=== PATIENT | male | born 1945 | race Caucasian/White ===

== ENCOUNTER → 2018-07-06 15:30 | Outpatient (CLI) | payer MEDICARE, SELFPAY | PROVIDERS: PCP Family Medicine; Visit Provider Nurse Practitioner Family | DX: Z45.018 Encounter for adjustment and management of other part of cardiac pacemaker (principal); I44.2 Atrioventricular block, complete; I10 Essential (primary) hypertension | CPT/HCPCS: 93288; 99213 ==

== ENCOUNTER 2018-08-19 01:27 | Outpatient (CLI) | payer MEDICARE, SELFPAY ==
[2018-08-19 11:31] LABS: Anion Gap 9.2 mmol/L (3-11); BUN 18 mg/dL (7-18); CO2 25.8 mmol/L (21.0-32.0); CREATININE 0.86 mg/dL (0.70-1.30); Calcium 8.6 mg/dL (8.5-10.1); Chloride 103 mmol/L (98-107); Cholesterol 139 mg/dL (50-200); Glucose 127 mg/dL (70-100); HDL Cholesterol 39 mg/dL (40-60); LDL CHOLESTEROL 83 mg/dL (<100); Potassium 4.3 mmol/L (3.5-5.1); Sodium 138 mmol/L (136-145); Triglyceride 109 mg/dL (30-150)
[2018-08-19 12:54] LABS: Hemoglobin A1C 6.7 % (4.5-6.2)
== END 2018-08-19 01:47 ==
PROVIDERS: PCP Family Medicine; Visit Provider Family Medicine
DX: E11.9 Type 2 diabetes mellitus without complications (principal)
CPT/HCPCS: 36415; 80048; 80061; 83721; 83036

== ENCOUNTER 2019-02-16 02:38 | Outpatient (CLI) | payer MEDICARE, SELFPAY ==
[2019-02-16 11:31] LABS: Hemoglobin A1C 6.7 % (4.5-6.2)
== END 2019-02-16 02:58 ==
PROVIDERS: PCP Family Medicine; Visit Provider Family Medicine
DX: E11.49 Type 2 diabetes mellitus with other diabetic neurological complication (principal)
CPT/HCPCS: 36415; 83036

== ENCOUNTER → 2019-03-01 10:38 | Outpatient (BNVA) | payer MEDICARE, SELFPAY | PROVIDERS: PCP Family Medicine; Visit Provider Nurse Practitioner Family | DX: I44.2 Atrioventricular block, complete (principal); Z45.018 Encounter for adjustment and management of other part of cardiac pacemaker; I10 Essential (primary) hypertension; E78.5 Hyperlipidemia, unspecified | CPT/HCPCS: 93288; 99213 ==

== ENCOUNTER 2019-08-18 01:46 | Outpatient (CLI) | payer MEDICARE, SELFPAY ==
[2019-08-18 13:39] LABS: Hemoglobin A1C 6.8 % (4.5-6.2)
== END 2019-08-18 02:06 ==
PROVIDERS: PCP Family Medicine; Visit Provider Family Medicine
DX: E11.9 Type 2 diabetes mellitus without complications (principal)
CPT/HCPCS: 36415; 83036

== ENCOUNTER 2019-08-25 07:00 | Outpatient (CLI) | payer MEDICARE, SELFPAY ==
[2019-08-25 14:38] LABS: BUN 19 mg/dL (7-18); CREATININE 0.91 mg/dL (0.70-1.30); Calcium 9.6 mg/dL (8.5-10.1); Chloride 102 mmol/L (98-107); Glucose 124 mg/dL (70-100); Potassium 4.6 mmol/L (3.5-5.1); Sodium 139 mmol/L (136-145)
== END 2019-08-25 07:20 ==
PROVIDERS: PCP Family Medicine; Visit Provider Family Medicine
DX: I10 Essential (primary) hypertension (principal)
CPT/HCPCS: 36415; 80048

== ENCOUNTER → 2019-12-14 12:59 | Outpatient (BNVA) | payer MEDICARE, SELFPAY | PROVIDERS: PCP Family Medicine; Referring Provider Family Medicine; Visit Provider Internal Medicine Cardiovascular Disease | DX: Z45.018 Encounter for adjustment and management of other part of cardiac pacemaker (principal); I44.2 Atrioventricular block, complete | CPT/HCPCS: 93280; 99212; 99213 ==

== ENCOUNTER → 2020-01-31 08:47 | Outpatient (BNVA) | payer MEDICARE, SELFPAY | PROVIDERS: PCP Family Medicine; Referring Provider Family Medicine; Visit Provider Internal Medicine Cardiovascular Disease | DX: R01.1 Cardiac murmur, unspecified (principal); I10 Essential (primary) hypertension; E78.5 Hyperlipidemia, unspecified; Z95.0 Presence of cardiac pacemaker; E11.42 Type 2 diabetes mellitus with diabetic polyneuropathy; Z79.84 Long term (current) use of oral hypoglycemic drugs | CPT/HCPCS: 99204; 99215 ==

== ENCOUNTER 2020-02-14 01:53 | Outpatient (CLI) | payer MEDICARE, OTHER, SELFPAY ==
--- NOTE | 2020-02-14 13:31 | DI.US_ITS ---
APPROVED REPORT EXAM: Comprehensive 2D, Doppler, and color-flow Echocardiogram Patient Location: [facility] Programmer: Marie Gutiérrez RDCS (AE) Indications: Murmur, HTN Conclusion Left Ventricle : The left ventricle is normal size. The left ventricular systolic function is normal. The left ventricular ejection fraction is within the normal range. There is normal left ventricular wall thickness. There is normal LV segmental wall motion. Diastolic function is indeterminate. LVEF i s 65-70%. Right Ventricle : The right ventricle is normal size. The right ventricular systolic function is norm al. Atria : The left atrium size is normal. The right atrium size is normal. Valves: There are no hemodynamically significant valvular lesions. Great Vessels : IVC is normal in size and collapses >50% with inspiration. The estimated RVSP is 35-4 0 mmHg. Please see the remainder of the study for additional details. There are no prior echocardiogram studies available for comparison. Wall motion Left Ventricle The left ventricle is normal size. The left ventricular systolic function is normal. The left ventric ular ejection fraction is within the normal range. There is normal left ventricular wall thickness. T here is normal LV segmental wall motion. Diastolic function is indeterminate. There is no ventricular septal defect visualized. LVEF is 65-70%. Right Ventricle The right ventricle is normal size. The right ventricular systolic function is normal. Atria The left atrium size is normal. The right atrium size is normal. Aortic Valve The Aortic valve is sclerotic. Aortic valve is probably trileaflet. There is no aortic valvular steno sis. No aortic regurgitation is present. Mitral Valve The mitral valve is normal in structure. No evidence of mitral valve stenosis. Trace mitral regurgita tion. Tricuspid Valve The tricuspid valve is normal in structure. There is no tricuspid valve stenosis. Trace tricuspid reg urgitation. Pulmonic Valve The pulmonary valve is normal in structure. There is no pulmonic valvular stenosis. There is no pulmo chet valvular regurgitation. Great Vessels The aortic root is normal in size. The ascending aorta is normal in size. Aortic arch is normal in ca liber. IVC is normal in size and collapses >50% with inspiration. The estimated RVSP is 35-40 mmHg. Pericardium There is no pericardial effusion. There is no pleural effusion. 2D Dimensions IVSD d PLAX 0.98 cm M: 0.6-1.2 LV Vol A2C d MOD 66.6 mL LVPW d PLAX 0.97 cm M: 0.6 - 1.2 LV Vol A4C d MOD 133.9 mL LVID d PLAX 5.10 cm M: 4.2 - 5.8 LA vol/ BSA A2C s A-L 38.0 mL/m2 LVDs 3.30 cm M: 2.5 - 4.0 LA vol/ BSA A4C s A-L 21.6 mL/m2 Ao Root d 2.82 cm M: 3.1 - 3.7 LA Vol/ BSA Biplane s A-L 30.2 mL/m2 RA Area A4C 14.19 cm2 LA Area A4C s MOD 16.51 cm2 RA Vol/ BSA A4C s A-L 18.8 mL/m2 LA Area A2C s MOD 23.04 cm2 Ao Asc Diam d 3.53 cm M: 2.6 - 3.4 LV EF A4C MOD 53.3 % LV EF Teichholz 63.4 % LV EF A2C MOD 51.6 % LVEF (Hawthorne's) 52.86 % M: 52 - 72 LV EF Biplane MOD 52.9 % LV Volume 71.19 mL M: 62 - 150 LV Volume Index 32.95 mL/m2 M: 34 - 74 LV Vol Biplane MOD 97.4 mL FS 34.55 % M-Mode TAPSE 2.60 cm (M/F) <1.7 LV Diastology MV E' medial 0.059 (>0.07 m/s) E/A Ratio 0.7 LV E/e MED 12.00 (<14) MV E Vmax 0.70 (0.4-1.3 m/s) MV E' lateral 0.072 (>0.1 m/s) MV A Vmax 0.95 (0.4-1.3 m/s) LV E/e LAT 9.70 (<14) MV E/A Ratio 0.72 MV E/E' medial 12.00 MV E/E' lateral 9.73 Aortic Valve LVOT Area 3.26 cm2 AoV Area Vmax 1.64 cm2 LVOT Vmax 0.88 m/s AoV Area/ BSA (Vmax) 0.75 cm2/m2 LVOT Mean Hardik. 0.62 m/s SHERRY Mean Hardik. 1.62 cm2 LVOT Peak Grad 3.1 mmHg SHERRY Mean Hardik. Index 0.75 cm2/m2 LVOT Mean Grad 1.7 mmHg LVOT VTI 0.184 m LVOT Diam s 2.00 cm (M/F) 1.5-2.5 AoV Vmax 1.76 (0.5-1.3 m/s) Velocity Ratio 0.50 AoV Mean Hardik. 1.24 m/s AoV Peak Grad 12.4 mmHg LVOT SV 59.92 mL AoV Mean Grad 7.0 (<5 mmHg) AoV VTI 0.315 (0.18-0.25 m) AoV Area VTI 1.90 (2.5-4.5 cm2) AoV Area/ BSA (VTI) 0.88 cm/m2 Mitral Valve MV DT 317 (160-240 msec) MV PHT 92 msec MV Area PHT 2.39 cm2 Pulmonary Valve PV Vmax 1.11 (0.5-1.5 m/s) PV Peak Grad 5.0 mmHg PV Mean Grad 2.6 mmHg PV VTI 0.220 m Tricuspid Valve TR Peak Grad 34.0 mmHg TR Vmax 2.92 m/s RA Pressure 3.00 mmHg RVSP (TR) 37.0 mmHg
== END 2020-02-14 02:13 ==
PROVIDERS: PCP Family Medicine; Visit Provider Internal Medicine Cardiovascular Disease
DX: R01.1 Cardiac murmur, unspecified (principal); I10 Essential (primary) hypertension; E78.5 Hyperlipidemia, unspecified
CPT/HCPCS: 93306

== ENCOUNTER 2020-02-16 02:24 | Outpatient (CLI) | payer MEDICARE, OTHER, SELFPAY ==
[2020-02-16 11:02] LABS: Hemoglobin A1C 6.8 % (3.8-5.6)
== END 2020-02-16 02:44 ==
PROVIDERS: PCP Family Medicine; Visit Provider Family Medicine
DX: E11.9 Type 2 diabetes mellitus without complications (principal)
CPT/HCPCS: 36415; 83036

== ENCOUNTER 2020-06-12 03:52 | Outpatient (CLI) | payer MEDICARE, SELFPAY ==
[2020-06-12 14:27] LABS: Hemoglobin A1C 6.4 % (3.8-5.6)
== END 2020-06-12 04:12 ==
PROVIDERS: PCP Family Medicine; Visit Provider Family Medicine
DX: E11.9 Type 2 diabetes mellitus without complications (principal)
CPT/HCPCS: 36415; 83036

== ENCOUNTER → 2020-06-13 08:49 | Outpatient (BNVA) | payer MEDICARE, SELFPAY | PROVIDERS: PCP Family Medicine; Referring Provider Family Medicine; Visit Provider Physician Assistant | DX: I44.2 Atrioventricular block, complete (principal); Z45.018 Encounter for adjustment and management of other part of cardiac pacemaker; E11.42 Type 2 diabetes mellitus with diabetic polyneuropathy; Z79.84 Long term (current) use of oral hypoglycemic drugs; I10 Essential (primary) hypertension | CPT/HCPCS: 93280; 99211 ==

== ENCOUNTER 2020-10-10 02:23 | Outpatient (CLI) | payer MEDICARE, SELFPAY ==
[2020-10-10 12:47] LABS: MCH 28.6 pg (27.0-33.0); MCHC 32.6 % (32.0-36.0); MCV 87.8 fL (80-95); MPV 12.1 fL (8.0-11.0); Platelet Count 217 10^3/uL (130-400); RDW 13.8 % (11.8-14.1); RDW-SD 44.2 fL; WBC 8.13 10^3/uL (4.4-10.8)
[2020-10-10 13:06] LABS: Microalb ug/mg Crea 33.7 ug/mg Cr
[2020-10-10 13:17] LABS: ALT 23 U/L (16-63); AST 18 U/L (15-37); Albumin 4.1 g/dL (3.4-5.0); Alkaline Phosphatase 83 U/L (46-116); Anion Gap 7.8 mmol/L (3-11); BUN 17 mg/dL (7-18); Bilirubin, Total 0.5 mg/dL (0.2-1.0); CO2 28.2 mmol/L (21.0-32.0); CREATININE 0.93 mg/dL (0.70-1.30); Calcium 9.5 mg/dL (8.5-10.1); Calculated LDL 90 mg/dL (<100); Chloride 101 mmol/L (98-107); Cholesterol 157 mg/dL (<200); Glucose 116 mg/dL (74-106); HDL Cholesterol 43 mg/dL (40-60); Potassium 4.3 mmol/L (3.5-5.1); Sodium 137 mmol/L (136-145); Total Protein 8.2 g/dL (6.4-8.2); Triglyceride 123 mg/dL (<150); Vitamin B12 404 pg/mL (193-986)
== END 2020-10-10 02:43 ==
PROVIDERS: PCP Family Medicine; Visit Provider Family Medicine
DX: I10 Essential (primary) hypertension (principal); E78.5 Hyperlipidemia, unspecified; E11.3293 Type 2 diabetes mellitus with mild nonproliferative diabetic retinopathy without macular edema, bilateral
CPT/HCPCS: 36415; 80053; 80061; 85027; 82043; 82570; 82607

== ENCOUNTER → 2021-01-16 08:51 | Outpatient (BNVA) | payer MEDICARE, SELFPAY | PROVIDERS: PCP Family Medicine; Visit Provider Physician Assistant | DX: I44.2 Atrioventricular block, complete (principal); Z45.018 Encounter for adjustment and management of other part of cardiac pacemaker | CPT/HCPCS: 93280; 99212 ==

== ENCOUNTER → 2021-02-01 08:54 | Outpatient (BNVA) | payer MEDICARE, SELFPAY | PROVIDERS: PCP Family Medicine; Referring Provider Family Medicine; Visit Provider Internal Medicine Cardiovascular Disease | DX: I44.2 Atrioventricular block, complete (principal); E78.5 Hyperlipidemia, unspecified; I10 Essential (primary) hypertension | CPT/HCPCS: 99213 ==

== ENCOUNTER 2021-05-28 03:02 | Outpatient (CLI) | payer MEDICARE, SELFPAY ==
[2021-05-28 12:37] LABS: Anion Gap 8.1 mmol/L (3-11); BUN 20 mg/dL (7-18); CO2 27.9 mmol/L (21.0-32.0); CREATININE 0.9 mg/dL (0.70-1.30); Calcium 9.3 mg/dL (8.5-10.1); Chloride 105 mmol/L (98-107); Glucose 116 mg/dL (74-106); Potassium 4.8 mmol/L (3.5-5.1); Sodium 141 mmol/L (136-145)
[2021-05-28 12:45] LABS: Calculated LDL 91 mg/dL (<100); Cholesterol 152 mg/dL (<200); HDL Cholesterol 39 mg/dL (40-60); Triglyceride 110 mg/dL (<150)
[2021-05-28 13:19] LABS: Hemoglobin A1C 6.7 % (<5.7)
== END 2021-05-28 03:03 | disposition home or self-care (01) ==
LOC: LOS 03:08
PROVIDERS: Family Medicine; PCP Nurse Practitioner Family; Visit Provider Nurse Practitioner Family
DX: I10 Essential (primary) hypertension (principal); E11.3293 Type 2 diabetes mellitus with mild nonproliferative diabetic retinopathy without macular edema, bilateral
CPT/HCPCS: 80048; 80061; 83036

== ENCOUNTER → 2021-07-17 08:48 | Outpatient (BNVA) | payer MEDICARE, SELFPAY | PROVIDERS: PCP Nurse Practitioner Family; Referring Provider Family Medicine; Visit Provider Physician Assistant | DX: I44.2 Atrioventricular block, complete (principal); Z45.018 Encounter for adjustment and management of other part of cardiac pacemaker | CPT/HCPCS: 93280; 99211 ==

== ENCOUNTER 2021-10-08 01:01 | Outpatient (CLI) | payer MEDICARE, SELFPAY ==
--- NOTE | 2021-10-08 13:57 | DI.RAD_ITS ---
Exam(s) XR HIP RT COMPLETE AP PELVIS EXAM: XR HIP RT COMPLETE AP PELVIS CLINICAL HISTORY: Continued worsening pain of right hip,m25.551. TECHNIQUE: 2D digital imaging was performed of the right hip. Three images were obtained. AP pelvis and AP and lateral right hip views were obtained. COMPARISON: No exams were available for comparison FINDINGS: BONES: No acute fracture is present. No bony destructive lesion is seen. JOINTS: No dislocation present. There is marked narrowing of the right hip joint. Moderate narrowing is seen in the left hip joint. SOFT TISSUE: Atherosclerosis. IMPRESSION: 1. Marked narrowing of the right hip joint consistent with osteoarthritis. 2. Atherosclerosis. DATA REPOSITORY: RADIATION DOSE DELIVERED:
== END 2021-10-08 01:21 ==
PROVIDERS: PCP Nurse Practitioner Family; Visit Provider Nurse Practitioner Family
DX: M25.551 Pain in right hip (principal); M16.11 Unilateral primary osteoarthritis, right hip
CPT/HCPCS: 73502

== ENCOUNTER → 2021-12-23 08:45 | Outpatient (BNVA) | payer MEDICARE, SELFPAY | PROVIDERS: PCP Nurse Practitioner Family; Referring Provider Nurse Practitioner Family; Visit Provider Student in an Organized Health Care Education/Training Program | DX: M16.11 Unilateral primary osteoarthritis, right hip (principal); E11.9 Type 2 diabetes mellitus without complications; I10 Essential (primary) hypertension; I44.2 Atrioventricular block, complete | CPT/HCPCS: 99214 ==

== ENCOUNTER → 2022-01-02 01:49 | Outpatient (CLI) | payer MEDICARE, SELFPAY ==
[2022-01-02] MEDS: Bupivacaine 0.5% Pres-Free 10 ML VIAL 80 ML IJ (13:10)
--- NOTE | 2022-01-02 13:11 | DI.RAD_ITS ---
Exam(s) RF JOINT INJECTION FLUORO GUID EXAM: RF JOINT INJECTION FLUORO GUID CLINICAL HISTORY: R HIP INJ UNDER FLUORO,degenerative joint disease,fluoro guided injection, TECHNIQUE: 2D and realtime digital imaging was performed. COMPARISON: No exams were available for comparison FINDINGS: C-arm fluoroscopy utilized by Dr. Gallardo during right hip injection. Hard copy shows intra-articul ar injection. IMPRESSION: RADIATION DOSE DELIVERED: Kar=2.27 mGy Total DLP
--- NOTE | 2022-01-02 13:11 | W.PROCNOTE ---
Date of service: 01/02/22 Time of Service: 13:11 Procedure Note Date of procedure: 01/02/22 Procedure: Right Hip Injection with Fluoroscopic Guidance Surgeon/Proceduralist/Physician: Roderick Gallardo Procedure Diagnosis: Right Hip Osteoarthritis Procedure Indications: Isrrael has had persistent pain of the RIGHT hip and groin. Noninvasive measures have been tried. To serve as both diagnostic and therapeutic, an injection under fluoroscopy was recommended. I had discussed the risks of the procedure and the patient elected to proceed. Procedure Description: Isrrael was greeted in the flouroscopy room. The correct side was identified and the consent was reviewed with the patient and signed. The patient was then placed in the supine position on the fluoroscopy table. The RIGHT hip was then prepped with Chloraprep. The anterolateral injection starting point was identiifed by bony landmarks and fluoroscopy. The skin and soft tissue in the tract of the injection was anesthetized with 1% Lidocaine. A spinal needle was then inserted deep into the hip joint at the level of the lateral femoral neck under fluoroscopic guidance. A small amount of Omnipaque solution was injected to confirm intraarticular placement. Once confirmed, the hip was injected with 6cc of 0.5% Bupivicaine and 80mg of Depo-Medrol. A bandaid was placed on the injection site. The patient tolerated the procedure well and noted improvement in pre-injection pain.
[2022-01-02] MEDS: methylPREDNISolone ACETATE 80 MG/ML VIAL IM (13:31)
[2022-01-02] MEDS: Omnipaque 300 MG/ML 10 ML BTL IJ (13:33)
== END ==
PROVIDERS: PCP Nurse Practitioner Family; Visit Provider Student in an Organized Health Care Education/Training Program
DX: M16.11 Unilateral primary osteoarthritis, right hip (principal); M25.511 Pain in right shoulder; R10.31 Right lower quadrant pain
CPT/HCPCS: 20610; 77002; J1040

== ENCOUNTER → 2022-01-08 08:50 | Outpatient (BNVA) | payer MEDICARE, SELFPAY | PROVIDERS: PCP Nurse Practitioner Family; Visit Provider Physician Assistant | DX: I44.2 Atrioventricular block, complete (principal); Z95.0 Presence of cardiac pacemaker | CPT/HCPCS: 93280; 99211 ==

== ENCOUNTER 2022-05-16 01:22 | Outpatient (CLI) | payer MEDICARE, SELFPAY | END 2022-05-16 01:23 | disposition home or self-care (01) | LOC: LOS 01:22 | PROVIDERS: PCP Nurse Practitioner Family; Visit Provider Nurse Practitioner Family | DX: I10 Essential (primary) hypertension (principal) | CPT/HCPCS: 36415; 82565 ==

== ENCOUNTER → 2022-07-16 08:37 | Outpatient (BNVA) | payer MEDICARE, SELFPAY | PROVIDERS: PCP Nurse Practitioner Family; Referring Provider Nurse Practitioner Family; Visit Provider Physician Assistant | DX: Z95.0 Presence of cardiac pacemaker (principal); I44.2 Atrioventricular block, complete | CPT/HCPCS: 93280 ==

== ENCOUNTER 2022-10-13 10:06 | Day surgery (SDC) | payer MEDICARE, SELFPAY ==
[2022-10-13 10:15] VITALS: BP 163/75; PULSE 77; RESP 18; TEMP 36.1; O2SAT 98
[2022-10-13] MEDS: Tropicam./Phenyleph. (1/2.5%) 5 ML BTL OS ×3 (10:28→10:40)
--- NOTE | 2022-10-13 10:48 | W.ANESPRE ---
General Info Date of Service Date Performed: 10/13/22 Height: 5 ft 10 in Weight: 98 kg Body Mass Index (BMI): 30.9 Surgical Procedure: Operation Date: 10/13/22 13:40 Proposed Procedure Side Surgeon p Cataract Extraction with IOL Implant w/Glaucoma Stent Left Dave Mendez MD Meds Allergies and Home Medications Allergies Allergy/AdvReac Type Severity Reaction Status Date / Time amlodipine AdvReac Severe Light Verified 10/13/22 10:27 headedness and fatigue dorzolamide AdvReac Intermediate SORE THROAT Verified 10/13/22 10:27 hydrochlorothiazide AdvReac Intermediate Leg cramps Verified 10/13/22 10:27 timolol AdvReac Intermediate DRY MOUTH; Verified 10/13/22 10:27 SOB Home Medication Medication Instructions Recorded Aspirin 81 mg PO DAILY 02/16/13 magnesium chloride 64 mg 2 tab PO HS 02/16/13 (magnesium chloride) tablet,delayed release (Mag 64) lancets 28 gauge #100 ea 08/25/19 latanoprost 0.005 % eye drops 1 drp ophthalmic (eye) QPM 12/14/19 gabapentin 300 mg capsule 300 mg PO TID #270 tab-caps 02/07/22 losartan 100 mg tablet (Cozaar) 100 mg PO DAILY #180 tabs 02/07/22 lovastatin 40 mg tablet 80 mg PO QHS #180 tab-caps 02/07/22 metformin 1,000 mg tablet 1,000 mg PO BID #180 tabs 02/07/22 blood sugar diagnostic (FreeStyle #100 strips 04/21/22 Lite Strips) brimonidine 0.2 % eye drops 1 drp ophthalmic (eye) BID 05/26/22 acetaminophen 500 mg tablet 1,000 mg PO BID 10/10/22 Current Visit Medications: Current Medications Generic Name Dose Route Start Last Admin Trade Name Freq PRN Reason Stop Dose Admin Acetaminophen 1,000 mg 10/13/22 06:00 Acetaminophen 500 Mg Tab PO Q4H PRN PRN Miscellaneous Medication 0 ml 10/13/22 06:00 Prednisolone 1%, Moxifloxacin 0.5%, Nepafenac 0.1% 5ml Btl OS DIRECTED RAHEL Miscellaneous Medication 0 ml 10/13/22 06:00 10/13/22 10:40 Tropicam./Phenyleph. 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 Lam MARI; [employer] ADAPTA DR01 ADDR01, SERIAL # [id number]; ATRIAL LEAD MODEL # [id number], SERIAL # [id number]; VENTRICULAR LEAD #[id number], SERIAL # [id number] Pilonidal cyst Exc Status post placement of cardiac pacemaker Tobacco Smoking/Tobacco Use Status: Former Tobacco Use Passive smoking exposure: Yes Second hand exposure: No Alcohol Alcohol Intake: former Year quit: 2020 Substance Use Substance use: Never Substance use type: does not use Vital Signs and Lab Results Vital Signs Most Recent Vital Signs in EMR: Most Recent Vital Signs Temp Pulse Resp BP Pulse Ox 36.1 C L 77 18 163/75 H 98 10/13/22 10:15 10/13/22 10:15 10/13/22 10:15 10/13/22 10:15 10/13/22 10:15 Lab Results Blood Type / Crossmatch: No Data to Display Complete Blood Count: No Data to Display Complete Metabolic Panel: Hemoglobin A1c 6.7 % (4.5-5.7) H 09/22/22 10:58 Liver Function Panel: No Data to Display Coagulation Panel: No Data to Display Cardiac Panel: No Data to Display Arterial Blood Gas: No Data to Display Venous Blood Gas: No Data to Display Pancreas Panel: No Data to Display Thyroid Panel: No Data to Display Infectious Disease: No Data to Display Blood Cultures: No Data to Display Toxicology Panel: No Data to Display Anesthesia Assessment and Plan Anesthesia History Personal History: No History of Anesthesia Complications Family History: No Family History of Anesthesia Complications Exercise Tolerance Exercise Tolerance: Metabolic Equivalents>4 Pertinent Negatives Pertinent Negatives: No Symptoms of GERD Cardiac & Pulmonary Exam Cardiac Exam: Normal S1/S2 Heart Sounds Pulmonary Exam: Clear Bilateral Breath Sounds Implantable Cardiac Device Does patient have a Pacemaker or an ICD?: Yes Device Data Communications Software Consultant:: Blockchain Adapta Pacemaker Reason for Placement:: 3rd degree heart block Date of Last Device Interrogation:: 07/16/22 Airway Exam Known Difficult Airway: No Mallampati Class: 3 Mouth Opening: Normal (> 3cm) Thyromental Distance: Greater than 3 cm Neck Range of Motion: Full ROM Neck Circumference: Normal Teeth Condition: Generalized Poor Dentition ASA Classification ASA Score: ASA 3 Emergency Case?: No NPO Status NPO Status: NPO Clears >2 hours, Solids >8 hours Anesthesia Plan Resuscitation Status: Full Code Anesthesia Technique: MAC Anesthesia Airway Planned: Natural Airway Monitors Used: Standard Monitors Preoperative Comments:: Discussed plan. Pt feels he will be fine without sedation
[2022-10-13 10:52] VITALS: BMI 30.9
--- NOTE | 2022-10-13 11:20 | W.ANESPOSTOP ---
Postoperative Evaluation Date, Time and Location Date Performed: 10/13/22 Time Performed: 12:45 Patient Location: Day Surgery Unit Vital Signs Most Recent Imported Vital Signs: Most Recent Vital Signs Temp Pulse Resp BP Pulse Ox 36.1 C L 77 18 163/75 H 98 10/13/22 10:15 10/13/22 10:15 10/13/22 10:15 10/13/22 10:15 10/13/22 10:15 Most Recent Manually Entered Vital Signs: Adult Blood Pressure: 138/64 Heart Rate: 71 Respirations: 18 Oxygen Saturation (%): 97 Temperature (C): 36.4 C Pain Score (0-10 Scale): 0 Assessment Mental Status: Awake (Alert & Oriented to Patient Baseline) Airway and Respiratory Function: Patent airway with normal (patient baseline) respiratory exam Cardiovascular Function: Hemodynamically Stable Hydration Status: Adequately Hydrated Nausea & Vomiting: No Nausea or Vomiting Pain: Pt. Denies Any Pain Peripheral Nerve Block: Patient did not receive a nerve block
[2022-10-13] MEDS: Tetracaine 0.5% 4 ML BTL OS (11:59)
[2022-10-13] MEDS: Lidocaine 2% Jelly 6 ML SYR (12:00)
[2022-10-13] MEDS: Povidone-Iodine Ophth 30 ML BTL (12:00)
[2022-10-13] MEDS: Lidocaine 1% Pres-Free 5 ML VIAL (12:05)
[2022-10-13] MEDS: Duovisc Viscoelastic System EACH 1 EACH (12:08)
[2022-10-13] MEDS: Balanced Salt Soln.-PLUS 500 ML BAG (12:08)
[2022-10-13 12:36] VITALS: BP 138/64; PULSE 71; RESP 18; TEMP 36.4; O2SAT 97
--- NOTE | 2022-10-13 12:39 | W.PM.DSUDISC ---
Date of service: 10/13/22 Time of Service: 12:39 Discharge Plan Disposition Patient Disposition: HOME Condition: Good Discharge Details Attending Provider: Dave Mendez Primary Care Provider: Khari Cody Home Meds and New Rx's Prescriptions: No Action latanoprost 0.005 % drops 1 drp OP QPM brimonidine 0.2 % drops 1 drp ophthalmic (eye) BID (DME) lancets 28 gauge misc 1 ea Miscellaneous DAILY Qty: 100 5RF Rx Instructions: One Daily FOR FREESTYLE LITE METER. NO INSULIN. DIAGNOSIS CODE E11.9 ASPIRIN 81 MG tablet 81 mg PO DAILY Mag 64 64 MG tablet,delayed release (DR/EC) 2 tab PO HS gabapentin 300 mg capsule 300 mg PO TID Qty: 270 4RF losartan [Cozaar] 100 mg tablet 100 mg PO DAILY Qty: 180 4RF lovastatin 40 mg tablet 80 mg PO QHS Qty: 180 4RF metformin 1,000 mg tablet 1,000 mg PO BID Qty: 180 4RF (DME) FreeStyle Lite Strips Strip 1 ea Sub-Q DAILY Qty: 100 4RF Rx Instructions: One Daily acetaminophen 500 mg Tablet 1,000 mg PO BID Discharge Instructions Stand Alone Forms: Post-op Topical Cataract, Jameel Stewardey (DSU) Discharge Orders Discharge Orders: Discharge Order (Routine); Ordered 10/13/22 Ordered By: Dave Mendez DS: Diagnosis Discharge Diagnosis (1) Posterior subcapsular age-related cataract of left eye: Status: Resolved (2) Nuclear sclerotic cataract of left eye: Status: Resolved (3) Primary open angle glaucoma (POAG) of left eye, mild stage: Status: Chronic
--- NOTE | 2022-10-13 12:41 | W.PM.OP ---
Date of service: 10/13/22 Time of Service: 12:41 Operative Note Operative Note DATE OF PROCEDURE: 10/13/22 PRE-OP DIAGNOSIS: Nuclear/cortical cataract, left eye Primary open-angle glaucoma, left eye, mild stage PROCEDURE: 1. Cataract extraction using phacoemulsification with intraocular lens implant, left eye 2. Insertion of multiple anterior segment aqueous drainage devices (Glaukos iStent inject x 2) into trabecular meshwork, left eye SURGEON: Dave Mendez ANESTHESIA TYPE: Local By Surgeon and MAC Refer to Anesthesia Record ESTIMATED BLOOD LOSS: 0 PATHOLOGY: none sent COMPLICATIONS: None Patient was transported to: same day Patient's condition: stable Implants: 1. Isma [employer] / [employer] Tecnis ZCB00 intraocular lens 2. Glaukos iStent inject trabecular micro-bypass stent x 2 Indications: 1. Progressive decreased vision due to cataract, left eye 2. Primary open angle glaucoma, left eye Procedure Description: CATARACT SURGERY OPERATIVE REPORT PREOPERATIVE DIAGNOSIS: Nuclear/cortical cataract, left eye Primary open-angle glaucoma, mild stage, left eye POSTOPERATIVE DIAGNOSIS: Same OPERATION: 1. Cataract extraction using phacoemulsification with posterior chamber intraocular lens implant, left eye. 2. Insertion of multiple anterior segment aqueous drainage devices (Glaukos iStent inject x 2) into trabecular meshwork, left eye IOL: IOL Immigration Judge/Model: [employer] / SULY Tecnis ZCB00 IOL Power: + 18.0 diopters IOL Serial Number: [id number] Optic Diameter: 6.0mm Haptic/Overall Diameter: 13.0mm PHACO INFO: Enoch Centurion Vision System with OZil and Active [employer]uidics Cumulative Dispersed Energy (CDE): 20.63 seconds TRABECULAR MICRO-BYPASS STENT INFO: Glaukos iStent inject x 2 Reference Number: [id number] Serial Number: [id number] SURGEON: Dave Mendez MD, CHET ANESTHESIA: Monitored Anesthesia Care (MAC), with local sub-tenon's anesthetic infiltration COMPLICATIONS: None SPECIMENS: None INDICATIONS FOR PROCEDURE: Patient is a 77-year-old gentleman with history of progressive decreased vision in his left eye secondary to the development of significant nuclear and cortical cataract. He also has a history of primary open-angle glaucoma, mild stage, currently managed on 2 topical medications in the left eye. The option of cataract surgery was offered to the patient and he felt he was symptomatic enough that he wished to proceed. The option of glaucoma stent procedure at the time of cataract surgery was also offered to the patient and he wished to proceed with that as well. PROCEDURE: The correct surgical eye was identified and marked as the left eye and the pupil was dilated in the preoperative area using mydriatics and cycloplegics. The dilated pupil size was 5.5 mm. He elected to proceed without oral sedation. The patient was brought to the operating room where cardiopulmonary monitoring was instituted and surgical time-out was performed, confirming the correct operative eye and IOL power. Topical anesthesia was administered and ophthalmic povidone-iodine 5% was instilled into the conjunctival fornices. Lidocaine gel was applied to the cornea and the anahy-ocular area was prepped with Betadine 10% solution and draped in the usual sterile fashion for intraocular surgery, including an aperture drape. A Tegaderm transparent film dressing was cut in half and used to cover the lashes and lid margins. Care was taken to sequester the lashes and lid margins under the Tegaderm dressing. A lid speculum was placed between the lids of the operative eye and the Enoch Lux[employer] Revalia operating microscope was maneuvered into position. Rohan scissors were then used to make a conjunctival buttonhole approximately 6mm posterior to the limbus in the inferonasal quadrant. Blunt dissection was carried out to expose bare sclera, and a blunt-tipped sub-tenon?s anesthesia cannula was introduced and passed posteriorly along the globe where non-preserved plain lidocaine was injected into posterior sub-Tenon?s space. A sideport knife was used to make a paracentesis port superior/superiortemporally. Intraocular phenylephrine/lidocaine was injected into the anterior chamber. The anterior chamber was then filled with viscoelastic. A 2.4mm keratome knife was used to create a half-thickness groove at the limbus and then to construct a three-plane near-clear corneal tunnel extending 2.0mm into clear cornea in the temporal position. . A flap was raised on the anterior capsule and capsulorhexis forceps were used to complete a continuous curvilinear capsulorhexis of 5.0 mm. Balanced salt solution was then used to perform cortical cleaving hydrodissection and nuclear hydrodelineation until the lens could be freely rotated within the capsular bag. The lens nucleus was then disassembled and removed within the capsular bag and iris plane using phacoemulsification. The lens nucleus was noted to be quite dense. Additional Viscoat was injected into the anterior chamber intermittently to protect the corneal endothelium. Residual cortical material was removed using the 45-degree angled silicone I/A tip with 0.3mm port. The posterior capsule was carefully polished to remove as much residual lens epithelial cells as safely possible. The capsular bag was then inflated and the anterior chamber deepened with viscoelastic. The lens implant described above was inserted into the capsular bag using the SULY [place] Injector. A Kuglen hook was used to dial the IOL into position. The anterior chamber was then slightly over-filled with viscoelastic. The microsope and the patient's head were tilted into the ideal position for viewing of the anterior chamber angle. Viscoelastic was placed on the cornea followed by a surgical gonionlens, and the anterior chamber angle landmarks were identified. The Bizdomukos iStent inject handpiece was introduced into the anterior chamber and the insertion sleeve was retracted once the injector was distal to the pupillary margin. The trocar was advanced through the central portion of the trabecular meshwork and into the back wall of Schlemm's canal in the superiornasal quadrant, with care taken to ensure the micro-insertion tube was perpendicular to the trabecular meshwork. The trabecular meshwork was lightly dimpled and the stent was injected without difficulty. The same procedure was then performed in the inferiornasal quradrant. Both stents were then examined and noted to be in good position within the trabecular meshwork. The microscope and the patients head were returned to the normal coaxial position. Viscoelatic was then removed from the anterior chamber using the I/A handpiece. The lens implant was noted to center nicely within the capsular bag. The incisions were stromally hydrated, and the anterior chamber was reformed using BSS. Then 0.5cc of moxifloxacin 1.0mg/ml were injected into the capsular bag and anterior chamber. The incisions were checked with a Weck spear and found to be secure. Several drops of ophthalmic povidone-iodine 5% were then applied to the eye followed by two drops of Imprimis combination prednisolone/moxifloxacin/nepafenac solution. The drapes were removed and a clear plastic protective eye shield was placed over the eye. The patient was then returned to [facility] Day Surgery in stable condition.
[2022-10-13 12:50] VITALS: BP 138/64; PULSE 71; RESP 18; TEMPC 36.4; O2SAT 97
== END 2022-10-13 13:05 | disposition home or self-care (01) ==
LOC: SUR 10:06
PROVIDERS: PCP Nurse Practitioner Family; Visit Provider Ophthalmology
PROC: (CPT 66991; principal; 2022-10-13 13:30)
DX: H25.042 Posterior subcapsular polar age-related cataract, left eye (principal); H40.1121 Primary open-angle glaucoma, left eye, mild stage
CPT/HCPCS: 66991; V2632; C1783

== ENCOUNTER 2022-10-20 09:24 | Day surgery (SDC) | payer MEDICARE, SELFPAY ==
--- NOTE | 2022-10-20 06:43 | ANES.PREOP_ITS ---
General Info Date of Service Date Performed: 10/20/22 Height: 5 ft 9 in Weight: 97 kg Body Mass Index (BMI): 31.6 Surgical Procedure: Operation Date: 10/20/22 12:25 Proposed Procedure Side Surgeon p Cataract Extraction with IOL Implant w/Glaucoma Stent Right Dave Mendez MD Meds Allergies and Home Medications Allergies Allergy/AdvReac Type Severity Reaction Status Date / Time amlodipine AdvReac Severe Light Verified 10/20/22 10:15 headedness and fatigue dorzolamide AdvReac Intermediate SORE THROAT Verified 10/20/22 10:15 hydrochlorothiazide AdvReac Intermediate Leg cramps Verified 10/20/22 10:15 timolol AdvReac Intermediate DRY MOUTH; Verified 10/20/22 10:15 SOB Home Medication Medication Instructions Recorded Aspirin 81 mg PO DAILY 02/16/13 magnesium chloride 64 mg 2 tab PO HS 02/16/13 (magnesium chloride) tablet,delayed release (Mag 64) lancets 28 gauge #100 ea 08/25/19 latanoprost 0.005 % eye drops 1 drp ophthalmic (eye) QPM 12/14/19 gabapentin 300 mg capsule 300 mg PO TID #270 tab-caps 02/07/22 losartan 100 mg tablet (Cozaar) 100 mg PO DAILY #180 tabs 02/07/22 lovastatin 40 mg tablet 80 mg PO QHS #180 tab-caps 02/07/22 metformin 1,000 mg tablet 1,000 mg PO BID #180 tabs 02/07/22 blood sugar diagnostic (FreeStyle #100 strips 04/21/22 Lite Strips) brimonidine 0.2 % eye drops 1 drp ophthalmic (eye) BID 05/26/22 acetaminophen 500 mg tablet 1,000 mg PO BID 10/10/22 Current Visit Medications: Current Medications Generic Name Dose Route Start Last Admin Trade Name Freq PRN Reason Stop Dose Admin Acetaminophen 1,000 mg 10/20/22 06:00 Acetaminophen 500 Mg Tab PO Q4H PRN PRN Miscellaneous Medication 0 ml 10/20/22 06:00 Prednisolone 1%, Moxifloxacin 0.5%, Nepafenac 0.1% 5ml Btl OD DIRECTED RAHEL Miscellaneous Medication 0 ml 10/20/22 06:00 Tropicam./Phenyleph. 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 Essential hypertension 11/16/13 I10 Glaucoma 08/19/13 H40.9 Hyperlipidemia E78.5 Prostatism N40.0 Hereditary and idiopathic peripheral neuropathy 08/19/13 G60.9 Gait disorder R26.9 Degenerative joint disease of right hip M16.11 Nuclear sclerotic cataract of left eye H25.12 Posterior subcapsular age-related cataract of left eye H25.042 Primary open angle glaucoma (POAG) of left eye, mild stage H40.1121 Nuclear sclerotic cataract of right eye H25.11 Surgical History Surgical History (Updated 10/17/22 @ 11:26 by Jacqueline Rogers RN) History of cataract surgery History of colonoscopy History of hernia repair Pacemaker (05/22/15) DR. Lam MARI; [employer] ADAPTA DR01 ADDR01, SERIAL # [id number]; ATRIAL LEAD MODEL # 5076, SERIAL # [id number]; VENTRICULAR LEAD #[id number], SERIAL # [id number] Pilonidal cyst Exc Status post placement of cardiac pacemaker Tobacco Smoking/Tobacco Use Status: Former Tobacco Use Passive smoking exposure: Yes Second hand exposure: No Alcohol Alcohol Intake: former Year quit: 2019 Substance Use Substance use: Never Substance use type: does not use Vital Signs and Lab Results Vital Signs Most Recent Vital Signs in EMR: Temp Pulse Resp BP Pulse Ox 36.4 C L 71 18 126/66 97 10/20/22 10:20 10/20/22 10:20 10/20/22 10:20 10/20/22 10:20 10/20/22 10:20 Lab Results Blood Type / Crossmatch: No Data to Display Complete Blood Count: No Data to Display Complete Metabolic Panel: Hemoglobin A1c 6.7 % (4.5-5.7) H 09/22/22 10:58 Liver Function Panel: No Data to Display Coagulation Panel: No Data to Display Cardiac Panel: No Data to Display Arterial Blood Gas: No Data to Display Venous Blood Gas: No Data to Display Pancreas Panel: No Data to Display Thyroid Panel: No Data to Display Infectious Disease: No Data to Display Blood Cultures: No Data to Display Toxicology Panel: No Data to Display Imaging and Studies Imaging and Studies Study information below may be from another EMR and interpreted by another provider. Please see original notes in EMR for more complete details. Echocardiogram Summary: 2020: LVEF 65-70%, noraml RvFxn. no sig valve lesions. Anesthesia Assessment and Plan Anesthesia History Personal History: No History of Anesthesia Complications Family History: No Family History of Anesthesia Complications Exercise Tolerance Exercise Tolerance: Metabolic Equivalents>4 Cardiac & Pulmonary Exam Cardiac Exam: Normal S1/S2 Heart Sounds Pulmonary Exam: Clear Bilateral Breath Sounds Implantable Cardiac Device Does patient have a Pacemaker or an ICD?: Yes Device Early Breastfeeding Care Specialist:: Medtronic Adapta Pacemaker Reason for Placement:: 3rd degree Date of Last Device Interrogation:: unkn Airway Exam Known Difficult Airway: No Mallampati Class: 3 Mouth Opening: Normal (> 3cm) Thyromental Distance: Greater than 3 cm Neck Range of Motion: Full ROM Neck Circumference: Normal Teeth Condition: Generalized Poor Dentition ASA Classification ASA Score: ASA 3 Emergency Case?: No NPO Status NPO Status: NPO Clears >2 hours, Solids >8 hours Anesthesia Plan Resuscitation Status: Full Code Anesthesia Technique: MAC Anesthesia Airway Planned: Natural Airway Monitors Used: Standard Monitors Preoperative Comments:: 77 yo male for repeat cataract. no mko previous. no health history change Sig PMHx: DM, HTN, 3 degree HB, pacer, peripheral neuropathy, former smoker.
[2022-10-20] MEDS: Tropicam./Phenyleph. (1/2.5%) 5 ML BTL OD ×2 (10:19→10:35)
[2022-10-20 10:20] VITALS: BP 126/66; PULSE 71; RESP 18; TEMP 36.4; O2SAT 97
[2022-10-20 10:44] VITALS: BMI 31.6
[2022-10-20] MEDS: Povidone-Iodine Ophth 30 ML BTL (11:24)
[2022-10-20] MEDS: Tetracaine 0.5% 4 ML BTL OD (11:24)
[2022-10-20] MEDS: Lidocaine 2% Jelly 6 ML SYR (11:24)
[2022-10-20] MEDS: Lidocaine 1% Pres-Free 5 ML VIAL (11:30)
[2022-10-20] MEDS: Balanced Salt Soln.-PLUS 500 ML BAG (11:32)
[2022-10-20] MEDS: Duovisc Viscoelastic System EACH 1 EACH (11:33)
[2022-10-20 11:58] VITALS: BP 129/66; PULSE 70; RESP 17; TEMP 36.3; O2SAT 98
--- NOTE | 2022-10-20 11:58 | W.PM.DSUDISC ---
Date of service: 10/20/22 Time of Service: 11:59 Discharge Plan Disposition Patient Disposition: HOME Condition: Good Discharge Details Attending Provider: Dave Mendez Primary Care Provider: Khari Cody Home Meds and New Rx's Prescriptions: No Action latanoprost 0.005 % drops 1 drp OP QPM brimonidine 0.2 % drops 1 drp ophthalmic (eye) BID (DME) lancets 28 gauge misc 1 ea Miscellaneous DAILY Qty: 100 5RF Rx Instructions: One Daily FOR FREESTYLE LITE METER. NO INSULIN. DIAGNOSIS CODE E11.9 ASPIRIN 81 MG tablet 81 mg PO DAILY Mag 64 64 MG tablet,delayed release (DR/EC) 2 tab PO HS gabapentin 300 mg capsule 300 mg PO TID Qty: 270 4RF losartan [Cozaar] 100 mg tablet 100 mg PO DAILY Qty: 180 4RF lovastatin 40 mg tablet 80 mg PO QHS Qty: 180 4RF metformin 1,000 mg tablet 1,000 mg PO BID Qty: 180 4RF (DME) FreeStyle Lite Strips Strip 1 ea Sub-Q DAILY Qty: 100 4RF Rx Instructions: One Daily acetaminophen 500 mg Tablet 1,000 mg PO BID Discharge Instructions Stand Alone Forms: Post-op Topical Cataract, Jameel Rodriguez (DSU) DS: Diagnosis Discharge Diagnosis (1) Nuclear sclerotic cataract of right eye: Status: Resolved (2) Primary open angle glaucoma (POAG) of right eye, mild stage: Status: Chronic
--- NOTE | 2022-10-20 12:00 | ROE_ITS ---
Date of service: 10/20/22 Time of Service: 12:00 Operative Note Operative Note DATE OF PROCEDURE: 10/20/22 PRE-OP DIAGNOSIS: Nuclear cataract, right eye primary open-angle glaucoma, right eye, mild stage POST-OP DIAGNOSIS: same PROCEDURE: 1. Cataract extraction using phacoemulsification with intraocular lens implant, right eye 2. Insertion of anterior segment aqueous drainage device (Glaukos iStent inject x 2) into trabecular meshwork, right eye SURGEON: Dave Mendez ANESTHESIA TYPE: Local By Surgeon and MAC Refer to Anesthesia Record PATHOLOGY: none sent COMPLICATIONS: None Patient was transported to: same day Patient's condition: stable Implants: 1. Isma [employer] / [employer] Tecnis ZCB00 intraocular lens 2. Glaukos iStent inject trabecular micro-bypass stent Indications: 1. Progressive decreased vision due to cataract, right eye 2. Primary open angle glaucoma, right eye Procedure Description: CATARACT SURGERY OPERATIVE REPORT PREOPERATIVE DIAGNOSIS: Nuclear cataract, right eye Primary open-angle glaucoma, right eye, mild stage POSTOPERATIVE DIAGNOSIS: Same OPERATION: 1. Cataract extraction using phacoemulsification with posterior chamber intraocular lens implant, right eye. 2. Insertion of multiple anterior segment aqueous drainage devices (Glaukos iStent inject x 1) into trabecular meshwork, right eye IOL: IOL Tool Crib Lead/Model: J[employer]J Vision / SULY Tecnis ZCB00 IOL Power: + 18.5 diopters IOL Serial Number: [id number] Optic Diameter: 6.0mm Haptic/Overall Diameter: 13.0mm PHACO INFO: Enoch Centurion Vision System with OZil and Active Fluidics Cumulative Dispersed Energy (CDE): 12.16 seconds TRABECULAR MICRO-BYPASS STENT INFO: Glaukos iStent inject x 2 Reference Number: [id number] Serial Number: [id number] US [id number] SURGEON: Dave Mendez MD, CHET ANESTHESIA: Monitored Anesthesia Care (MAC), with local sub-tenon's anesthetic infiltration COMPLICATIONS: None SPECIMENS: None INDICATIONS FOR PROCEDURE: The patient is a 77-year-old gentleman with history of diminished visual acuity in both eyes secondary to the development of bilateral cataracts. He also has a history of primary open-angle glaucoma, intolerant to multiple medications. Glaucoma is currently managed on latanoprost and brimonidine in both eyes. The option of cataract surgery was offered to the patient and he wished to proceed. In addition, the option of glaucoma stent procedure at the time of cataract surgery was also also offered and he wished to proceed with this as well to reduce his eyedrop medication burden. He has undergone cataract surgery in the left eye and is doing well postoperatively. He now presents for cataract surgery with glaucoma stent in the right eye. PROCEDURE: The correct surgical eye was identified and marked as the right eye and the pupil was dilated in the preoperative area using mydriatics and cycloplegics. The dilated pupil size was 6.0 mm. The patient elected to proceed without oral sedation. The patient was brought to the operating room where cardiopulmonary monitoring was instituted and surgical time-out was performed, confirming the correct operative eye and IOL power. Topical anesthesia was administered and ophthalmic povidone-iodine 5% was instilled into the conjunctival fornices. Lidocaine gel was applied to the cornea and the anahy-ocular area was prepped with Betadine 10% solution and draped in the usual sterile fashion for intraocular surgery, including an aperture drape. A Tegaderm transparent film dressing was cut in half and used to cover the lashes and lid margins. Care was taken to sequester the lashes and lid margins under the Tegaderm dressing. A lid speculum was placed between the lids of the operative eye and the Enoch LuxOR Revalia operating microscope was maneuvered into position. Rohan scissors were then used to make a conjunctival buttonhole approximately 6mm posterior to the limbus in the inferonasal quadrant. Blunt dissection was carried out to expose bare sclera, and a blunt-tipped sub-tenon?s anesthesia cannula was introduced and passed posteriorly along the globe where non- preserved plain lidocaine was injected into posterior sub-Tenon?s space. A sideport knife was used to make a paracentesis port inferiortemporally. Intraocular phenylephrine/lidocaine was injected into the anterior chamber. The anterior chamber was then filled with viscoelastic. A 2.4mm keratome knife was used to construct a 2-plane near-clear corneal tunnel extending 2.0mm into clear cornea superiortemporally. . A flap was raised on the anterior capsule and capsulorhexis forceps were used to complete a continuous curvilinear capsulorhexis of 5.0 mm. Balanced salt solution was then used to perform cortical cleaving hydrodissection and nuclear hydrodelineation until the lens could be freely rotated within the capsular bag. The lens nucleus was then disassembled and removed within the capsular bag and iris plane using phacoemulsification. The anterior chamber was noted to be quite deep. Residual cortical material was removed using the 45-degree angled silicone I/A tip with 0.3mm port. The posterior capsule was carefully polished to remove as much residual lens epithelial cells as safely possible. The capsular bag was then inflated and the anterior chamber deepened with viscoelastic. The lens implant described above was inserted into the capsular bag using the SULY [place] Injector. A Kuglen hook was used to dial the IOL into position. The anterior chamber was then slightly over-filled with viscoelastic. The microsope and the patient's head were tilted into the ideal position for viewing of the anterior chamber angle. Viscoelastic was placed on the cornea followed by a surgical gonionlens, and the anterior chamber angle landmarks were identified. The brotipsukos iStent inject handpiece was introduced into the anterior chamber and the insertion sleeve was retracted once the injector was distal to the pupillary margin. The trocar was advanced through the central portion of the trabecular meshwork and into the back wall of Schlemm's canal in the inferonasal quadrant, with care taken to ensure the micro-insertion tube was perpendicular to the trabecular meshwork. The trabecular meshwork was lightly dimpled and the actuator button was depressed, but the stent failed to deploy. A second attempt was made and the stent deployed nicely within the trabecular meshwork. The same procedure was then performed in the superiornasal quadrant, but the stent failed to deploy after 2 clicks.. The microscope and the patients head were returned to the normal coaxial position. Viscoelatic was then removed from the anterior chamber using the I/A handpiece. The lens implant was noted to center nicely within the capsular bag. The incisions were stromally hydrated, and the anterior chamber was reformed using BSS. Then 0.5cc of moxifloxacin 1.0mg/ml were injected into the capsular bag and anterior chamber. The incisions were checked with a Weck spear and found to be secure. Several drops of ophthalmic povidone-iodine 5% were then applied to the eye followed by two drops of Imprimis combination prednisolone/moxifloxacin/nepafenac solution. The drapes were removed and a clear plastic protective eye shield was placed over the eye. The patient was then returned to Same Day Surgery in stable condition.
--- NOTE | 2022-10-20 12:11 | W.ANESPOSTOP ---
Postoperative Evaluation Date, Time and Location Date Performed: 10/20/22 Time Performed: 12:11 Patient Location: Day Surgery Unit Vital Signs Most Recent Imported Vital Signs: Most Recent Vital Signs Temp Pulse Resp BP Pulse Ox 36.3 C L 70 17 129/66 98 10/20/22 11:58 10/20/22 11:58 10/20/22 11:58 10/20/22 11:58 10/20/22 11:58 Pain Score Most Recent Pain Score: Most Recent Pain Score Pain Level 0 10/20/22 11:58 Assessment Mental Status: Awake (Alert & Oriented to Patient Baseline) Airway and Respiratory Function: Patent airway with normal (patient baseline) respiratory exam Cardiovascular Function: Hemodynamically Stable Hydration Status: Adequately Hydrated Nausea & Vomiting: No Nausea or Vomiting Pain: Pt. Denies Any Pain Peripheral Nerve Block: Patient did not receive a nerve block
== END 2022-10-20 12:18 | disposition home or self-care (01) ==
PROVIDERS: PCP Nurse Practitioner Family; Visit Provider Ophthalmology
PROC: (CPT 66991; principal; 2022-10-20 12:15)
DX: H25.11 Age-related nuclear cataract, right eye (principal); H40.1111 Primary open-angle glaucoma, right eye, mild stage; E11.42 Type 2 diabetes mellitus with diabetic polyneuropathy
CPT/HCPCS: 66991; V2632; C1783

== ENCOUNTER 2023-01-14 08:32 | Outpatient (CLI) | payer MEDICARE, SELFPAY ==
--- NOTE | 2023-01-14 08:30 | RT.EKG_ITS ---
APPROVED REPORT Exam: Resting ECG Reason for Exam: AV block Patient Location: O HR:69 bpm ECG Measurements Heart Rate 69 AXIS ID 226 P 1 QRSd 163 QRS -68 QT 443 T 88 QTc 475 Conclusion Atrial-sensed ventricular-paced rhythm...ventricular pacing tracks p-waves No further analysis attempted due to paced rhythm Baseline wander in lead(s) III,aVF
== END 2023-01-14 08:33 | disposition home or self-care (01) ==
LOC: DI.CARD 08:33
PROVIDERS: PCP Nurse Practitioner Family; Visit Provider Physician Assistant
DX: I44.2 Atrioventricular block, complete (principal)
CPT/HCPCS: 93010

== ENCOUNTER → 2023-01-14 08:45 | Outpatient (BNVA) | payer MEDICARE, SELFPAY | PROVIDERS: PCP Nurse Practitioner Family; Visit Provider Physician Assistant | DX: Z95.0 Presence of cardiac pacemaker (principal); I44.2 Atrioventricular block, complete | CPT/HCPCS: 93005; 93280; 99211 ==

== ENCOUNTER 2023-05-12 02:05 | Outpatient (CLI) | payer MEDICARE, SELFPAY ==
[2023-05-12 10:55] LABS: CREATININE 0.9 mg/dL (0.70-1.30); Calculated LDL 62 mg/dL (<100); Cholesterol 128 mg/dL (<200); Estimated GFR 86.88 (mL/min/1.73m2); HDL Cholesterol 44 mg/dL (40-60); Hemoglobin A1C 6.7 % (<5.7); Potassium 4.5 mmol/L (3.5-5.1); Triglyceride 114 mg/dL (<150)
== END 2023-05-12 02:06 | disposition home or self-care (01) ==
LOC: LOS 02:05
PROVIDERS: PCP Nurse Practitioner Family; Visit Provider Nurse Practitioner Family
DX: I10 Essential (primary) hypertension (principal); E11.42 Type 2 diabetes mellitus with diabetic polyneuropathy; E78.2 Mixed hyperlipidemia
CPT/HCPCS: 36415; 80061; 82565; 83036; 84132

== ENCOUNTER 2023-06-10 01:51 | Outpatient (CLI) | payer MEDICARE, SELFPAY ==
--- NOTE | 2023-06-10 07:47 | DI.US_ITS ---
Exam(s) US SOFT TISSUE EXTREMITY EXAM: US SOFT TISSUE EXTREMITY CLINICAL HISTORY: Cyst to right index finger,foreign body,m79.5. TECHNIQUE: Ultrasound was performed using standard protocol. COMPARISON: None. FINDINGS: Images are submitted for interpretation. Submitted images reveal 7 x 4 x 9 mm cystic structure off the dorsal aspect of the 2nd-index finger j ust distal to the proximal interphalangeal joint.. On these images there does not appear to be tendo n running through this cystic structure. IMPRESSION: Dorsal index finger cystic finding as above. First consideration is for para-articular ganglion cyst . DATA REPOSITORY:
== END 2023-06-10 02:11 ==
LOC: DI 01:52
PROVIDERS: PCP Nurse Practitioner Family; Visit Provider Nurse Practitioner Family
DX: M79.5 Residual foreign body in soft tissue (principal)
CPT/HCPCS: 76881

== ENCOUNTER → 2023-07-15 08:46 | Outpatient (BNVA) | payer MEDICARE, SELFPAY | PROVIDERS: PCP Nurse Practitioner Family; Visit Provider Physician Assistant | DX: Z45.010 Encounter for checking and testing of cardiac pacemaker pulse generator [battery] (principal); I44.2 Atrioventricular block, complete | CPT/HCPCS: 93280; 99212 ==

== ENCOUNTER → 2024-01-20 09:09 | Outpatient (BNVA) | payer MEDICARE, SELFPAY | PROVIDERS: PCP Nurse Practitioner Family; Referring Provider Nurse Practitioner Family; Visit Provider Physician Assistant | DX: Z95.0 Presence of cardiac pacemaker (principal); I44.2 Atrioventricular block, complete | CPT/HCPCS: 93280 ==

== ENCOUNTER → 2024-02-11 02:30 | Outpatient (CLI) | payer MEDICARE, SELFPAY ==
--- NOTE | 2024-02-11 15:08 | DI.US_ITS ---
APPROVED REPORT EXAM: Comprehensive 2D, Doppler, and color-flow Echocardiogram Patient Location: Out-Patient Gear Design Engineer: Marie Gutiérrez RDCS (AE) Indications: Third degree heart block, pacemaker Other Information Study Quality: Fair. Technically limited study due to body habitus. Conclusion Technically difficult study Normal left ventricular wall thickness and chamber size. Ejection fraction is 35%. There is global hypokinesis Right ventricle appears normal in size and function Atria are normal in size Device lead noted in the right heart Aortic valve is sclerotic without stenosis or regurgitation Mild mitral annular calcification. Mild mitral regurgitation Mild to moderate tricuspid regurgitation. Estimated right ventricular systolic pressure is 40 mmHg Wall motion Left Ventricle The left ventricle is normal size. Left ventricular systolic function is moderately decreased. There is normal left ventricular wall thickness. Regional wall motion abnormalities cannot be excluded. The re is no ventricular septal defect visualized. LVEF is 35%. Right Ventricle Right ventricle is grossly normal in size. Right ventricular systolic function is grossly normal. Pac emaker lead is present in the right ventricle. Atria The left atrium size is normal. The right atrium size is normal. Aortic Valve The Aortic valve is sclerotic. Number of aortic valve leaflets could not be assessed. There is no aor tic valvular stenosis. No aortic regurgitation is present. Mitral Valve Mild mitral annular calcification. No evidence of mitral valve stenosis. Mild mitral regurgitation. Tricuspid Valve The tricuspid valve is normal in structure. There is no tricuspid valve stenosis. Mild to moderate tr icuspid regurgitation. The RVSP is 39.6mmHg. Pulmonic Valve The pulmonary valve is normal in structure. There is no pulmonic valvular stenosis. Trace pulmonic re gurgitation. Great Vessels The aortic root is normal in size. The ascending aorta is mildly dilated. Aortic arch is normal in ca liber. IVC is normal in size and collapses >50% with inspiration. Pericardium There is no pericardial effusion. 2D Dimensions IVSD d PLAX 0.99 cm M: 0.6-1.2 Ao Root d 3.30 cm M: 3.1 - 3.7 LVPW d PLAX 0.98 cm M: 0.6 - 1.2 Ao Asc Diam d 3.52 cm M: 2.6 - 3.4 LVID d PLAX 4.84 cm M: 4.2 - 5.8 LVDs 4.03 cm M: 2.5 - 4.0 LV EF Teichholz 35.1 % FS 16.81 % LV EDV (Teich) 109.5 mL LV ESV (Teich) 71.1 mL M-Mode TAPSE 2.54 cm (M/F) >1.7 LA Volume LA Length A4C 4.0 cm LA Length A2C 4.9 cm LA Area A4C s 12.04 cm2 LA Area A2C s 17.45 cm2 LA Vol A4C A-L 30.87 mL LA Vol A2C A-L 53.16 mL LA Vol Biplane A-L 44.7 mL LA Vol/BSA A4C A-L LA Vol/BSA A2C A-L LA Vol/BSA BP A-L 21.6 mL/m2 LA Vol A4C MOD 29.9 mL LA Vol A2C MOD 49.6 mL LA Vol BP MOD 42.3 mL LV Diastology MV E' medial 0.051 (>0.07 m/s) MV E Vmax 0.85 (0.4-1.3 m/s) MV E/E' MED 16.71 (<14) MV A Vmax 0.95 (0.4-1.3 m/s) MV E' lateral 0.077 (>0.1 m/s) E/A Ratio 0.9 MV E/E' LAT 11.07 (<14) MV E' Average 0.064 m/s MV E/E'(average) 13.32 Aortic Valve AoV Vmax 1.90 m/s LVOT Vmax 0.98 m/s AoV Peak Grad 14.5 mmHg LVOT Peak Grad 3.8 mmHg AoV Area (Vmax) 1.69 cm2 LVOT VTI 0.257 m AoV VTI 0.413 m LVOT Mean Grad 2.3 mmHg AoV Mean Hardik. 1.43 m/s LVOT SV 84.77 mL AoV Mean Grad 9.2 mmHg LVOT Diam s 2.00 cm AoV Area (VTI) 2.05 cm2 Velocity Ratio 0.52 Mitral Valve MV DT 261 (160-240 msec) MV Vmax TIPS 0.98 m/s MV Mean Grad 2.0 (<2mmHg) MV VTI 0.290 m Pulmonary Valve PV Vmax 0.82 (0.5-1.5 m/s) RVOT Vmax 0.56 m/s PV Peak Grad 2.7 mmHg RVOT Peak Gr. 1.3 mmHg PV Mean Hardik 0.60 m/s RVOT VTI 0.125 m PV Mean Grad 1.6 mmHg RVOT Mean Gr. 0.7 mmHg Tricuspid Valve RA Pressure 3.00 mmHg TR Vmax 3.02 m/s TV S' 0.09 m/s TR Peak Grad 36.5 mmHg RVSP (TR) 39.6 mmHg
== END ==
PROVIDERS: PCP Nurse Practitioner Family; Visit Provider Physician Assistant
DX: I44.2 Atrioventricular block, complete (principal)
CPT/HCPCS: 93306

== ENCOUNTER 2024-06-15 12:53 | Outpatient (CLI) | payer MEDICARE, SELFPAY ==
[2024-06-15 12:23] LABS: Calculated LDL 44 mg/dL (<100); Cholesterol 109 mg/dL (<200); Estimated GFR 76.08 (mL/min/1.73m2); HDL Cholesterol 42 mg/dL (40-60); Potassium 4.7 mmol/L (3.5-5.1); Triglyceride 117 mg/dL (<150)
[2024-06-15 23:03] LABS: PSA, Screening 0.8 ng/mL (<=6.5)
== END 2024-06-15 12:54 | disposition home or self-care (01) ==
LOC: LBO 12:53
PROVIDERS: PCP Nurse Practitioner Family; Visit Provider Nurse Practitioner Family
DX: I10 Essential (primary) hypertension (principal); E78.2 Mixed hyperlipidemia; Z12.5 Encounter for screening for malignant neoplasm of prostate
CPT/HCPCS: 36415; 80061; 84153; 82565; 84132

== ENCOUNTER → 2024-07-20 10:38 | Outpatient (BNVA) | payer MEDICARE, SELFPAY | PROVIDERS: PCP Nurse Practitioner Family; Visit Provider Student in an Organized Health Care Education/Training Program | DX: Z95.810 Presence of automatic (implantable) cardiac defibrillator (principal); I44.2 Atrioventricular block, complete | CPT/HCPCS: 93280 ==

== ENCOUNTER 2024-08-08 12:07 | Outpatient (CLI) | payer MEDICARE, SELFPAY ==
--- NOTE | 2024-08-08 12:00 | DI.US_ITS ---
Exam(s) US EXTREMITY VENOUS BI EXAM: US EXTREMITY VENOUS BI CLINICAL HISTORY: leg swelling r/o DVT, M79.89. TECHNIQUE: Bilateral lower extremity venous ultrasound performed using grayscale, color-flow, and sp ectral Doppler analysis. COMPARISON: No exams were available for comparison FINDINGS: The bilateral common femoral, femoral and popliteal veins demonstrate normal compressibility, augment ation, and color Doppler. The posterior tibial veins and peroneal veins are patent. There is edema i n the fat of the lower leg bilaterally. Reactive groin lymph nodes are present. IMPRESSION: Bilat lower leg edema. No evidence of DVT. DATA REPOSITORY:
== END 2024-08-08 12:27 ==
LOC: DI 12:07
PROVIDERS: PCP Nurse Practitioner Family; Visit Provider Physician Assistant
DX: R22.41 Localized swelling, mass and lump, right lower limb; R22.42 Localized swelling, mass and lump, left lower limb
CPT/HCPCS: 93970

== ENCOUNTER 2024-08-09 02:37 | Outpatient (CLI) | payer MEDICARE, SELFPAY ==
[2024-08-09 12:20] LABS: Abs Immature Grans 0.02 10^3/uL (0.0-0.06); Absolute Basophil Count 0.07 10^3/uL (0.0-0.2); Absolute Eosinophil Count 0.13 10^3/uL (0.0-0.7); Absolute Monocyte Count 0.71 10^3/uL (0.1-0.8); Absolute Neutrophil Count 4.58 10^3/uL (1.2-6.7); Basophils % 0.8 %; Eosinophils % 1.6 %; HCT 38.3 % (40.0-50.0); HGB 11.7 g/dL (13.5-17.5); Immature Grans % 0.2 %; Lymphocytes % 33.7 %; MCH 26.4 pg (27.0-33.0); MCHC 30.5 % (32.0-36.0); MCV 87 fL (80-95); MPV 11.3 fL (8.0-11.0); Monocytes % 8.5 %; Neutrophils % 55.2 %; Platelet Count 270 10^3/uL (130-400); RBC 4.43 10^6/uL (4.36-5.78); RDW 15.6 % (11.8-14.1); RDW-SD 49.2 fL; WBC 8.31 10^3/uL (4.4-10.8)
[2024-08-09 12:40] LABS: ALT 15 U/L (16-63); AST 13 U/L (15-37); Alkaline Phosphatase 62 U/L (46-116); Anion Gap 8.1 mmol/L (3-11); BUN 15 mg/dL (7-18); CO2 28.9 mmol/L (21.0-32.0); CREATININE 0.8 mg/dL (0.70-1.30); Chloride 101 mmol/L (98-107); Estimated GFR 89.47 (mL/min/1.73m2); Glucose 134 mg/dL (74-106); Potassium 4.4 mmol/L (3.5-5.1); Sodium 138 mmol/L (136-145); Total Protein 7.8 g/dL (6.4-8.2)
== END 2024-08-09 02:38 | disposition home or self-care (01) ==
LOC: LOS 02:38
PROVIDERS: PCP Nurse Practitioner Family; Visit Provider Physician Assistant
DX: I50.9 Heart failure, unspecified (principal); M79.89 Other specified soft tissue disorders; L03.90 Cellulitis, unspecified; R60.0 Localized edema
CPT/HCPCS: 36415; 80053; 85025

== ENCOUNTER 2024-08-12 19:13 | Outpatient (REF) | payer MEDICARE, SELFPAY ==
[2024-08-12 16:41] LABS: COMMENT (LAB VIEW ONLY) 142.98 mg/dL; Microalb ug/mg Crea 23.7 ug/mg Cr
== END 2024-08-12 19:14 | disposition home or self-care (01) ==
LOC: LBN 19:13
PROVIDERS: PCP Nurse Practitioner Family; Visit Provider Family Medicine
DX: E11.9 Type 2 diabetes mellitus without complications (principal); E11.42 Type 2 diabetes mellitus with diabetic polyneuropathy; I42.9 Cardiomyopathy, unspecified; R30.0 Dysuria; R60.9 Edema, unspecified; E11.3293 Type 2 diabetes mellitus with mild nonproliferative diabetic retinopathy without macular edema, bilateral; I10 Essential (primary) hypertension
CPT/HCPCS: 82043; 82570

== ENCOUNTER 2024-08-15 04:27 | Outpatient (CLI) | payer MEDICARE, SELFPAY ==
[2024-08-15 12:31] LABS: Anion Gap 9.2 mmol/L (3-11); BUN 13 mg/dL (7-18); CO2 26.8 mmol/L (21.0-32.0); Calcium 9.6 mg/dL (8.5-10.1); Chloride 100 mmol/L (98-107); Estimated GFR 76.08 (mL/min/1.73m2); Glucose 128 mg/dL (74-106); Magnesium 1.8 mg/dL (1.8-2.4); Potassium 4.2 mmol/L (3.5-5.1); Sodium 136 mmol/L (136-145)
== END 2024-08-15 04:28 | disposition home or self-care (01) ==
LOC: LOS 04:27
PROVIDERS: PCP Nurse Practitioner Family; Referring Provider Family Medicine; Visit Provider Family Medicine
DX: I42.9 Cardiomyopathy, unspecified (principal); E11.42 Type 2 diabetes mellitus with diabetic polyneuropathy; R30.0 Dysuria; R60.9 Edema, unspecified; E11.3293 Type 2 diabetes mellitus with mild nonproliferative diabetic retinopathy without macular edema, bilateral; I10 Essential (primary) hypertension; E11.9 Type 2 diabetes mellitus without complications
CPT/HCPCS: 36415; 80048; 83735

== ENCOUNTER → 2024-08-19 08:56 | Outpatient (BNVA) | payer MEDICARE, SELFPAY | PROVIDERS: PCP Nurse Practitioner Family; Referring Provider Nurse Practitioner Family; Visit Provider Physical Therapy Assistant | DX: S81.801D Unspecified open wound, right lower leg, subsequent encounter (principal); S81.802D Unspecified open wound, left lower leg, subsequent encounter; X58.XXXD Exposure to other specified factors, subsequent encounter | CPT/HCPCS: 29580 ==

== ENCOUNTER → 2024-08-26 12:52 | Outpatient (BNVA) | payer MEDICARE, SELFPAY | PROVIDERS: PCP Nurse Practitioner Family; Visit Provider Physical Therapy Assistant | DX: S81.801D Unspecified open wound, right lower leg, subsequent encounter (principal); S81.802D Unspecified open wound, left lower leg, subsequent encounter; X58.XXXD Exposure to other specified factors, subsequent encounter | CPT/HCPCS: 29580 ==

== ENCOUNTER 2024-08-29 03:06 | Outpatient (CLI) | payer MEDICARE, SELFPAY ==
[2024-08-29 12:29] LABS: Anion Gap 6.5 mmol/L (3-11); BUN 18 mg/dL (7-18); CO2 32.5 mmol/L (21.0-32.0); Calcium 9.4 mg/dL (8.5-10.1); Chloride 99 mmol/L (98-107); Estimated GFR 76.08 (mL/min/1.73m2); Glucose 118 mg/dL (74-106); Potassium 3.9 mmol/L (3.5-5.1); Sodium 138 mmol/L (136-145)
== END 2024-08-29 03:07 | disposition home or self-care (01) ==
LOC: LOS 03:07
PROVIDERS: PCP Nurse Practitioner Family; Visit Provider Family Medicine
DX: I10 Essential (primary) hypertension (principal); I42.9 Cardiomyopathy, unspecified
CPT/HCPCS: 36415; 80048

== ENCOUNTER → 2024-09-02 15:40 | Outpatient (BNVA) | payer MEDICARE, SELFPAY | PROVIDERS: PCP Nurse Practitioner Family; Referring Provider Nurse Practitioner Family; Visit Provider Physical Therapy Assistant | DX: S81.801D Unspecified open wound, right lower leg, subsequent encounter (principal); S81.802D Unspecified open wound, left lower leg, subsequent encounter; X58.XXXD Exposure to other specified factors, subsequent encounter | CPT/HCPCS: 29580; 29850 ==

== ENCOUNTER → 2024-09-08 08:51 | Outpatient (BNVA) | payer MEDICARE, SELFPAY | PROVIDERS: PCP Nurse Practitioner Family; Referring Provider Nurse Practitioner Family; Visit Provider Physical Therapy Assistant | DX: S81.801D Unspecified open wound, right lower leg, subsequent encounter (principal); S81.802D Unspecified open wound, left lower leg, subsequent encounter; R60.9 Edema, unspecified; E11.40 Type 2 diabetes mellitus with diabetic neuropathy, unspecified; I10 Essential (primary) hypertension; X58.XXXD Exposure to other specified factors, subsequent encounter | CPT/HCPCS: 29580 ==

== ENCOUNTER → 2024-09-15 08:06 | Outpatient (BNVA) | payer MEDICARE, SELFPAY | PROVIDERS: PCP Nurse Practitioner Family; Referring Provider Nurse Practitioner Family; Visit Provider Physical Therapy Assistant | DX: S81.801A Unspecified open wound, right lower leg, initial encounter (principal); S81.802A Unspecified open wound, left lower leg, initial encounter; Z48.00 Encounter for change or removal of nonsurgical wound dressing; X58.XXXA Exposure to other specified factors, initial encounter | CPT/HCPCS: 29580 ==

== ENCOUNTER 2024-09-19 09:10 | Outpatient (CLI) | payer MEDICARE, SELFPAY ==
--- NOTE | 2024-09-19 09:00 | RT.EKG_ITS ---
APPROVED REPORT Exam: Resting ECG Reason for Exam: cardiac evaluation Patient Location: O HR:66 bpm ECG Measurements Heart Rate 66 AXIS W[place] 247 P 19 QRSd 174 QRS -67 QT 443 T 100 QTc 465 Conclusion Atrial-sensed ventricular-paced rhythm...ventricular pacing tracks p-waves No further analysis attempted due to paced rhythm
== END 2024-09-19 09:11 | disposition home or self-care (01) ==
LOC: DI.CARD 09:10
PROVIDERS: PCP Nurse Practitioner Family; Visit Provider Internal Medicine Cardiovascular Disease
DX: I10 Essential (primary) hypertension (principal); I42.9 Cardiomyopathy, unspecified; Z95.0 Presence of cardiac pacemaker
CPT/HCPCS: 93010

== ENCOUNTER → 2024-09-19 10:59 | Outpatient (BNVA) | payer MEDICARE, SELFPAY | PROVIDERS: PCP Nurse Practitioner Family; Referring Provider Nurse Practitioner Family; Visit Provider Internal Medicine Cardiovascular Disease | DX: I44.2 Atrioventricular block, complete (principal); I42.9 Cardiomyopathy, unspecified; Z95.0 Presence of cardiac pacemaker | CPT/HCPCS: 93005; 99214 ==

== ENCOUNTER → 2024-09-21 08:44 | Outpatient (BNVA) | payer MEDICARE, SELFPAY | PROVIDERS: PCP Nurse Practitioner Family; Referring Provider Nurse Practitioner Family; Visit Provider Physical Therapy Assistant | DX: S81.801D Unspecified open wound, right lower leg, subsequent encounter (principal); S81.802D Unspecified open wound, left lower leg, subsequent encounter; X58.XXXD Exposure to other specified factors, subsequent encounter | CPT/HCPCS: 29580 ==

== ENCOUNTER → 2024-09-28 10:44 | Outpatient (BNVA) | payer MEDICARE, SELFPAY | PROVIDERS: PCP Nurse Practitioner Family; Referring Provider Nurse Practitioner Family; Visit Provider Physical Therapy Assistant | DX: S81.801D Unspecified open wound, right lower leg, subsequent encounter (principal); S81.802D Unspecified open wound, left lower leg, subsequent encounter; X58.XXXD Exposure to other specified factors, subsequent encounter | CPT/HCPCS: 29580 ==

== ENCOUNTER → 2024-10-06 12:44 | Outpatient (BNVA) | payer MEDICARE, SELFPAY | PROVIDERS: PCP Nurse Practitioner Family; Referring Provider Nurse Practitioner Family; Visit Provider Physical Therapy Assistant | DX: S81.801D Unspecified open wound, right lower leg, subsequent encounter (principal); S81.802D Unspecified open wound, left lower leg, subsequent encounter; X58.XXXD Exposure to other specified factors, subsequent encounter | CPT/HCPCS: 29580 ==

== ENCOUNTER → 2024-10-13 12:48 | Outpatient (BNVA) | payer MEDICARE, SELFPAY | PROVIDERS: PCP Nurse Practitioner Family; Referring Provider Nurse Practitioner Family; Visit Provider Physical Therapy Assistant | DX: S81.801D Unspecified open wound, right lower leg, subsequent encounter (principal); S81.802D Unspecified open wound, left lower leg, subsequent encounter; X58.XXXD Exposure to other specified factors, subsequent encounter | CPT/HCPCS: 99212 ==

== ENCOUNTER → 2024-10-21 12:46 | Outpatient (BNVA) | payer MEDICARE, SELFPAY | PROVIDERS: PCP Nurse Practitioner Family; Referring Provider Nurse Practitioner Family; Visit Provider Physical Therapy Assistant | DX: S81.801D Unspecified open wound, right lower leg, subsequent encounter (principal); S81.802D Unspecified open wound, left lower leg, subsequent encounter; X58.XXXD Exposure to other specified factors, subsequent encounter | CPT/HCPCS: 99213 ==

== ENCOUNTER → 2024-11-04 11:16 | Outpatient (BNVA) | payer MEDICARE, SELFPAY | PROVIDERS: PCP Nurse Practitioner Family; Referring Provider Nurse Practitioner Family; Visit Provider Physical Therapy Assistant | DX: S81.801D Unspecified open wound, right lower leg, subsequent encounter (principal); S81.802D Unspecified open wound, left lower leg, subsequent encounter; X58.XXXD Exposure to other specified factors, subsequent encounter; R60.0 Localized edema | CPT/HCPCS: 99213 ==

== ENCOUNTER → 2025-01-18 10:25 | Outpatient (BNVA) | payer MEDICARE, SELFPAY | PROVIDERS: PCP Nurse Practitioner Family; Visit Provider Registered Nurse | DX: Z95.810 Presence of automatic (implantable) cardiac defibrillator (principal); I44.2 Atrioventricular block, complete | CPT/HCPCS: 93280 ==

== ENCOUNTER 2025-03-27 17:24 | Emergency (ER) | payer MEDICARE, SELFPAY ==
[2025-03-27] VITALS (44 sets, daily range): BP systolic 130–174; BP diastolic 72–97; PULSE 103–128; RESP 16–43; TEMP 36.8; O2SAT 87–96
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
--- NOTE | 2025-03-27 17:30 | RT.EKG_ITS ---
APPROVED REPORT Exam: Resting ECG Reason for Exam: baseline/screening Patient Location: E HR:112 bpm ECG Measurements Heart Rate 112 AXIS TN 28 P 36 QRSd 167 QRS -68 QT 440 T 90 QTc 601 Conclusion Ventricular-paced rhythm
[2025-03-27] MEDS: Normal Saline 500 ML IV (17:44)
[2025-03-27] MEDS: ACETAMINOPHEN 500 MG/50 ML BAG 200 MG IVPB (17:44)
[2025-03-27 17:48] LABS: Abs Immature Grans 0.35 10^3/uL (0.0-0.06); Absolute Basophil Count 0.09 10^3/uL (0.0-0.2); Absolute Eosinophil Count 0.11 10^3/uL (0.0-0.7); Basophils % 0.6 %; Eosinophils % 0.7 %; HCT 37.2 % (40.0-50.0); HGB 11.5 g/dL (13.5-17.5); Immature Grans % 2.3 %; Lymphocytes % 26.3 %; MCH 25.4 pg (27.0-33.0); MCHC 30.9 % (32.0-36.0); MCV 82 fL (80-95); MPV 9.8 fL (8.0-11.0); Monocytes % 5.1 %; Platelet Count 343 10^3/uL (130-400); RBC 4.53 10^6/uL (4.36-5.78); RDW 15.6 % (11.8-14.1); RDW-SD 46.2 fL; WBC 15.22 10^3/uL (4.4-10.8)
[2025-03-27 17:49] LABS: Absolute Monocyte Count 0.78 10^3/uL (0.1-0.8); Absolute Neutrophil Count 9.89 10^3/uL (1.2-6.7)
[2025-03-27 18:00] LABS: PTT Activated 27.3 sec (20.6-30.2); Prothrombin Time 10.5 sec (9.1-11.1)
[2025-03-27 18:06] LABS: Anion Gap 9.7 mmol/L (3-11); BUN 17 mg/dL (7-18); CO2 30.3 mmol/L (21.0-32.0); CREATININE 0.9 mg/dL (0.70-1.30); Calcium 9.8 mg/dL (8.5-10.1); Chloride 101 mmol/L (98-107); Estimated GFR 86.34 (mL/min/1.73m2); Glucose 162 mg/dL (74-106); Lipase 20 U/L (<78); Potassium 4.1 mmol/L (3.5-5.1); Sodium 141 mmol/L (136-145); Troponin I 10 ng/L (<or=76)
[2025-03-27 18:07] LABS: ETHANOL BLOOD < 3.0 mg/dL (<10)
[2025-03-27] MEDS: Normal Saline - Diluent 50 ML VIAL IJ (18:28)
[2025-03-27] MEDS: Omnipaque 350 MG/ML 100 ML BTL IJ (18:28)
[2025-03-27 19:15] LABS: Troponin I 23 ng/L (<or=76)
[2025-03-27 20:58] LABS: Bilirubin Negative (Negative); Blood Large (Negative); Clarity Clear (Clear); Glucose Negative (Negative); Ketones 40 mg/dL (Negative); Leukocyte Esterase Negative (Negative); Nitrite Negative (Negative); Specific Gravity 1.015 (1.005-1.025); Urobilinogen 0.2 mg/dL (Up to 0.2)
[2025-03-27 21:06] LABS: Bacteria Few HPF (Negative); C & S Indicated? No; Crystals Negative HPF (Negative); Epithelial Cells Negative HPF (Negative); Mucus Negative (Negative); WBC 0-2 HPF (0-5)
== END 2025-03-27 22:24 | disposition short-term general hospital (02) ==
PROVIDERS: Emergency Provider Physician Assistant; PCP Nurse Practitioner Family
DX: S22.41XA Multiple fractures of ribs, right side, initial encounter for closed fracture (principal); V43.52XA Car driver injured in collision with other type car in traffic accident, initial encounter; D72.89 Other specified disorders of white blood cells; S12.690A Other displaced fracture of seventh cervical vertebra, initial encounter for closed fracture; S22.028A Other fracture of second thoracic vertebra, initial encounter for closed fracture; Z95.0 Presence of cardiac pacemaker; S10.83XA Contusion of other specified part of neck, initial encounter
CPT/HCPCS: 99285 ×2; 36415; 74177; 80048; 83690; 86850; 86900; 86901; 93005; 96361; 96365; 70450; 71260; 72125; 80320; 81003; 81015; 84484; 85025; 85610; 85730; 93010; J0131; J3490